=== PATIENT | male | born 1960 | race Caucasian/White ===

== ENCOUNTER 2016-11-27 00:20 | Emergency (ER) | payer MEDICAID, MEDICARE ==
[~2016-11-27] VITALS: Ht 190.5 cm; Wt 72.4 kg
[~2016-11-27 00:20] MED LIST: PANT40TA5 PO; RISP4TAB2 PO
[2016-11-27] MEDS ORDERED: IBUPROFEN 200 MG TABLET ONE (01:27)
[2016-11-27] MEDS ORDERED: IBUPROFEN 200 MG TABLET PO ONE (01:30)
[2016-11-27 01:38] LABS: HEMATOCRIT 34.5 % (39.2-51.8); HEMOGLOBIN 11.2 g/dL (13.7-18.0); WHITE BLOOD COUNT 6.2 x10^3/uL (3.4-10)
[2016-11-27 01:49] LABS: ASPARTATE AMINO TRANSFERASE 10 U/L (15-37); BLOOD UREA NITROGEN 20 mg/dL (7-18)
[2016-11-27 03:23] VITALS: BP 145/70
== END 2016-11-27 04:15 | disposition home or self-care (01) ==
LOC: ED 04:09
DX: N20.1 Calculus of ureter (principal); N13.2 Hydronephrosis with renal and ureteral calculous obstruction; R31.9 Hematuria, unspecified; Z85.47 Personal history of malignant neoplasm of testis
CPT/HCPCS: 36415; 76770; 80053; 81001; 85025; 87086; 99285

== ENCOUNTER → 2016-12-11 | Outpatient (CLI) | payer MEDICARE | END | disposition home or self-care (01) | LOC: CFH 14:06 | PROVIDERS: ATTEND Urology | DX: K80.20 Calculus of gallbladder without cholecystitis without obstruction (principal); N13.2 Hydronephrosis with renal and ureteral calculous obstruction; M85.80 Other specified disorders of bone density and structure, unspecified site; M47.897 Other spondylosis, lumbosacral region; I70.0 Atherosclerosis of aorta | CPT/HCPCS: 74176 ==

== ENCOUNTER 2017-04-26 12:05 | Emergency (ER) | payer MEDICARE ==
[~2017-04-26] VITALS: Ht 190.5 cm; Wt 95.0 kg
[2017-04-26 12:06] VITALS: BP 166/106
[2017-04-26] MEDS ORDERED: IBUPROFEN 200 MG TABLET ONE (12:57)
[2017-04-26] MEDS ORDERED: IBUPROFEN 200 MG TABLET PO ONE (13:00)
== END 2017-04-26 13:30 | disposition home or self-care (01) ==
LOC: ED 13:07
DX: M25.571 Pain in right ankle and joints of right foot (principal); M25.572 Pain in left ankle and joints of left foot; K02.9 Dental caries, unspecified; I10 Essential (primary) hypertension; F17.210 Nicotine dependence, cigarettes, uncomplicated; Z59.0 Homelessness
CPT/HCPCS: 99284

== ENCOUNTER 2018-03-08 13:04 | Emergency (ER) | payer MEDICARE ==
[~2018-03-08] VITALS: Ht 190.5 cm; Wt 100.2 kg
[2018-03-08 13:12] VITALS: BP 152/87
== END 2018-03-08 14:51 | disposition home or self-care (01) ==
LOC: ED 13:48
DX: J06.9 Acute upper respiratory infection, unspecified (principal); R05 Cough; I10 Essential (primary) hypertension; Z59.0 Homelessness
CPT/HCPCS: 71046; 99283